=== PATIENT | male | born 1970 | race African-American/Black ===

== ENCOUNTER 2017-03-06 11:55 | Emergency (ER) | payer OTHER ==
[~2017-03-06] VITALS: Ht 167.6 cm; Wt 100.0 kg
[~2017-03-06 11:55] MED LIST: NOCURR
[2017-03-06] MEDS ORDERED: IBUP-1547 PO (12:44)
[2017-03-06] MEDS ORDERED: METF500T4 PO (12:44)
[2017-03-06] MEDS ORDERED: AMOX1TAB15 PO (12:44)
[2017-03-06 12:47] LABS: GLUCOSE,POINT OF CARE 192 MG/DL (70-110)
[2017-03-06] MEDS ORDERED: RAMIPRIL 10 MG CAPSULE PO ONE (15:15)
[2017-03-06] MEDS ORDERED: ACYCLOVIR 200 MG CAPSULE PO ONE (15:15)
[2017-03-06] MEDS ORDERED: PredniSONE 20 MG TABLET PO ONE (15:15)
[2017-03-06 15:51] VITALS: BP 161/107
== END 2017-03-06 15:55 | disposition home or self-care (01) ==
LOC: EMS 12:17
DX: G51.0 Bell's palsy (principal); I10 Essential (primary) hypertension; E11.9 Type 2 diabetes mellitus without complications; F17.210 Nicotine dependence, cigarettes, uncomplicated
CPT/HCPCS: 82962; 99284; 99406; J7512